=== PATIENT | male | born 1935 | race Hispanic/Latino ===

== ENCOUNTER 2017-03-13 14:18 | Observation (INO) | payer MEDICARE ==
[2017-03-13 14:18] VITALS: BMI 26.6
--- NOTE | 2017-03-13 14:48 | C.PDOC ---
History Of Present Illness NEW ONSET DIZZY SINCE THIS MORNING. "SPINNING" WORSE W POSITOIN CHANGE. +NV. NO GRIMES, FOCAL WEAK. NO CP. HO PPM, R LEG STENT EXAM MILD DIST NONTOXIC HEENT NO NYSTAGMUS NEURO NEG RRR REMAINDE RNEG Time Seen by Provider: 03/13/17 14:39 Chief Complaint (Nursing): Dizziness/Lightheaded History Per: Patient History/Exam Limitations: no limitations Onset/Duration Of Symptoms: Hrs Current Symptoms Are (Timing): Still Present Seizure Or Post-ictal Symptoms: None Fall Associated With With Symptoms: No Recent travel outside of the [place]: No Past Medical History Reviewed: Historical Data, Nursing Documentation, Vital Signs Vital Signs: Last Vital Signs Temp 97.5 F L 03/13/17 14:20 Pulse 63 03/13/17 14:20 Resp 20 03/13/17 14:20 BP 145/61 03/13/17 14:20 Pulse Ox 95 03/13/17 18:28 - Medical History PMH: Atrial Fibrillation, Cardia Arrhythmia, Fractures (right thumb 1950 no sx) , HTN Surgical History: Back Surgery, Cholecystectomy, Pacemaker (11/26/2013) - [employer] Procedures CONTRAST ARTERIOGRAM-LEG (08/27/13) CORONAR ARTERIOGR-2 CATH (08/27/13) ING HERNIA REP-GRAFT NOS (01/08/07) LEFT HEART CARDIAC CATH (08/27/13) LT HEART ANGIOCARDIOGRAM (08/27/13) UMBIL HERNIA REPAIR-GRFT (01/08/07) Family History: States: Unknown Family Hx - Social History Hx Alcohol Use: No Hx Substance Use: No - Immunization History Hx Tetanus Toxoid Vaccination: No Hx Influenza Vaccination: No Hx Pneumococcal Vaccination: No Review Of Systems Except As Marked, All Systems Reviewed And Found Negative. Constitutional: Negative for: Fever, Chills Cardiovascular: Negative for: Chest Pain Respiratory: Negative for: Cough, Shortness of Breath, Wheezing Gastrointestinal: Negative for: Nausea, Vomiting, Abdominal Pain Skin: Negative for: Rash Neurological: Positive for: Dizziness. Negative for: Weakness, Numbness, Headache Physical Exam - Physical Exam Appears: Non-toxic, Other (MILD DISTRESS, NONTOXIC) Skin: Normal Color, Warm, Dry Head: Atraumatic, Normacephalic Eye(s): bilateral: PERRL, EOMI, Other (NO NYSTAGMUS) Ear(s): Bilateral: Normal Nose: Normal Oral Mucosa: Moist Neck: Normal ROM, No Midline Cervical Tenderness, No Paracervical Tenderness, Supple Chest: Symmetrical Cardiovascular: Rhythm Regular Respiratory: Normal Breath Sounds, No Rales, No Rhonchi, No Wheezing Gastrointestinal/Abdominal: Soft, No Tenderness, No Guarding, No Rebound Back: Normal Inspection Extremity: Normal ROM, Capillary Refill (< 2 SEC.) Neurological/Psych: Oriented x3, Normal Speech, Normal Cognition ED Course And Treatment - Laboratory Results Result Diagrams: 03/13/17 15:00 03/13/17 15:00 ECG: Interpreted By Me ECG Rhythm: AV Paced Rate From EC (BPM) O2 Sat by Pulse Oximetry: 95 (RA) Pulse Ox Interpretation: Normal - CT Scan/US CT HEAD Other Rad Studies (CT/US): Read By Radiologist, Radiology Report Reviewed CT/US Interpretation: IMPRESSION: No acute intracranial abnormalities. No significant findings to account for the clinical presentation. Progress - Re-Evaluation Re-evaluation Note: 03/13/17 17:39 PERSIST VERTIGO SP MECLIZINE. INDUCIBLE W POSITION CHANGE. PENDING CT REPORT 03/13/17 17:59 PENDING CALLBACK PMD 03/13/17 18:02 D/W DR CALIX WILL ADMIT - Data Reviewed Data Reviewed: Lab, Diagnostic imaging, EKG, Old records Disposition Counseled Patient/Family Regarding: Studies Performed, Diagnosis - Disposition Disposition: HOSPITALIZED Disposition Time: 18:03 Condition: STABLE - POA Present On Arrival: Poor Glycemic Control - Clinical Impression Clinical Impression: Vertigo, Difficulty walking - Scribe Statement The provider has reviewed the documentation as recorded by the Vishal Fields All medical record entries made by the Vishal were at my direction and personally dictated by me. I have reviewed the chart and agree that the record accurately reflects my personal performance of the history, physical exam, medical decision making, and the department course for this patient. I have also personally directed, reviewed, and agree with the discharge instructions and disposition. Decision To Admit - Pt Status Changed To: Hospital Disposition Of: Observation - . Bed Request Type: Regular Admitting Physician: Jennifer Calix Patient Diagnosis: Vertigo, Difficulty walking
[2017-03-13 15:07] LABS: BASO # 0.1 K/uL (0.0-0.2); BASO % 0.5 % (0.0-2.0); EOS # 0.1 K/uL (0.0-0.7); EOS % 1.1 % (0.0-4.0); HEMATOCRIT 35.8 % (35.0-51.0); LYMPH # 1.7 K/uL (1.0-4.3); LYMPH % 15.9 % (20.0-40.0); MEAN CELL VOLUME 92.5 fL (80.0-94.0); MEAN CORPUSCULAR HEMOGLOBIN 31.6 pg (27.0-31.0); MEAN CORPUSCULAR HGB CONC 34.2 g/dL (33.0-37.0); MEAN PLATELET VOLUME 7.8 fL (7.2-11.7); MONO # 0.5 K/uL (0.0-0.8); MONO % 4.8 % (0.0-10.0); NRBC % 0.1 % (0.0-2.0); RED CELL DISTRIBUTION WIDTH 13.5 % (11.5-14.5); WHITE BLOOD COUNT 10.8 K/uL (4.8-10.8)
[2017-03-13 15:34] LABS: CHLORIDE 103 mmol/L (98-107); SODIUM 138 mmol/L (132-148)
[2017-03-13 15:35] LABS: POTASSIUM 4.2 mmol/L (3.6-5.2)
[2017-03-13 15:37] LABS: ALB/GLOB RATIO 1.3 (1.0-2.1); ALKALINE PHOSPHATASE 45 U/L (38-126); AST/SGOT 19 U/L (17-59); BILIRUBIN,TOTAL 0.8 mg/dL (0.2-1.3); BLOOD UREA NITROGEN 19 mg/dL (9-20); CARBON DIOXIDE 23 mmol/L (22-30); GFR AFRICAN-AMERICAN > 60; GLUCOSE,RANDOM 243 mg/dL (75-110); TOTAL PROTEIN 6.6 g/dL (6.3-8.3)
[2017-03-13 15:38] LABS: ALT/SGPT 19 U/L (21-72); CALCIUM 8.9 mg/dl (8.6-10.4)
[2017-03-13] MEDS ORDERED: Iohexol 350mg/ml 100 ML ONE (16:05)
[2017-03-13] MEDS ORDERED: Iodixanol 320 MG/ML 100 ML BOTTLE IV ONE (16:41)
--- NOTE | 2017-03-13 17:56 | CT ---
PROCEDURE: CT HEAD WITHOUT CONTRAST. HISTORY: dizzy COMPARISON: None available. TECHNIQUE: Axial computed tomography images were obtained through the head/brain without intravenous contrast. Radiation dose: Total exam DLP = 780.12 mGy-cm. This CT exam was performed using one or more of the following dose reduction techniques: Automated exposure control, adjustment of the mA and/or kV according to patient size, and/or use of iterative reconstruction technique. FINDINGS: HEMORRHAGE: No intracranial hemorrhage. BRAIN: No mass effect or edema. Age related senescent change VENTRICLES: Unremarkable. No hydrocephalus. CALVARIUM: Unremarkable. PARANASAL SINUSES: Unremarkable as visualized. No significant inflammatory changes. MASTOID AIR CELLS: Unremarkable as visualized. No inflammatory changes. OTHER FINDINGS: None. IMPRESSION: No acute intracranial abnormalities. No significant findings to account for the clinical presentation.
--- NOTE | 2017-03-13 21:13 | CP.PCM.HP ---
History of Present Illness - History of Present Illness History of Present Illness: The pt is an 81 year old man with, DM, HTN,HLD ,CAD, episodic atrial fib, s/p PPM. in NSR, on xarelto. he came to the hospital with a complaint of feeling dizzy , started this am then agia noted at 12 noon and ER, unabe to balance him self, with spinning sensation and vomiting one episode . denies fever]diarrhea , chest pain, SOB. no hx of similar symtoms. Past Patient History - Past Medical History & Family History Past Medical History?: Yes - Past Social History Smoking Status: Never Smoked - CARDIAC Hx Atrial Fibrillation: Yes Hx Cardia Arrhythmia: Yes Hx Hypertension: Yes Hx Pacemaker: Yes (11/26/2013) - PULMONARY Hx Respiratory Disorders: No - NEUROLOGICAL Hx Neurological Disorder: No - HEENT Hx HEENT Problems: Yes Hx Cataracts: Yes (b/l sx) - RENAL Hx Chronic Kidney Disease: No - ENDOCRINE/METABOLIC Hx Endocrine Disorders: Yes Hx Diabetes Mellitus Type 2: Yes - HEMATOLOGICAL/ONCOLOGICAL Hx Blood Disorders: Yes Hx Cancer: Yes (possible "skin ca") - INTEGUMENTARY Hx Dermatological Problems: Yes Hx Squamous Cell: Yes Other/Comment: "squamous cell left chest lesion 2 surgries has chest wall scar, some eccymosis, small lump to right of right eye where squamous cell ca was removed" as per previous triage notes. - MUSCULOSKELETAL/RHEUMATOLOGICAL Hx Falls: No - GASTROINTESTINAL Hx Gastrointestinal Disorders: No - GENITOURINARY/GYNECOLOGICAL Hx Genitourinary Disorders: No - PSYCHIATRIC Hx Substance Use: No - SURGICAL HISTORY Hx Cholecystectomy: Yes - ANESTHESIA Hx Anesthesia: Yes Hx Anesthesia Reactions: Yes (NAUSEA/VOMITING) Meds Allergies/Adverse Reactions: Allergies Allergy/AdvReac Type Severity Reaction Status Date / Time No Known Allergies Allergy Verified 05/03/15 10:41 Results - Vital Signs Recent Vital Signs: Last Vital Signs Temp 98.0 F 03/13/17 18:47 Pulse 65 03/13/17 18:47 Resp 20 03/13/17 18:47 BP 144/61 03/13/17 18:47 Pulse Ox 99 03/13/17 18:47 - Labs Result Diagrams: 03/14/17 07:19 03/14/17 07:19
[2017-03-13] MEDS: (Novolog) Insulin Aspart, Recombinant 100 u/ml 10 ml vial SC SCH (21:55)
[2017-03-14 07:33] LABS: BASO % 0.4 % (0.0-2.0); EOS # 0.1 K/uL (0.0-0.7); EOS % 1.9 % (0.0-4.0); HEMATOCRIT 35.2 % (35.0-51.0); LYMPH # 1.9 K/uL (1.0-4.3); LYMPH % 25.5 % (20.0-40.0); MEAN CELL VOLUME 91.5 fL (80.0-94.0); MEAN CORPUSCULAR HEMOGLOBIN 31.8 pg (27.0-31.0); MEAN CORPUSCULAR HGB CONC 34.7 g/dL (33.0-37.0); MEAN PLATELET VOLUME 8.2 fL (7.2-11.7); MONO # 0.8 K/uL (0.0-0.8); MONO % 9.9 % (0.0-10.0); RED CELL DISTRIBUTION WIDTH 13.2 % (11.5-14.5); WHITE BLOOD COUNT 7.6 K/uL (4.8-10.8)
[2017-03-14 07:44] LABS: CHLORIDE 102 mmol/L (98-107); POTASSIUM 3.9 mmol/L (3.6-5.2); SODIUM 139 mmol/L (132-148)
[2017-03-14 07:46] LABS: GFR AFRICAN-AMERICAN > 60
[2017-03-14 07:47] LABS: ALB/GLOB RATIO 1.5 (1.0-2.1); ALKALINE PHOSPHATASE 40 U/L (38-126); ALT/SGPT 18 U/L (21-72); AST/SGOT 16 U/L (17-59); BILIRUBIN,TOTAL 0.6 mg/dL (0.2-1.3); BLOOD UREA NITROGEN 21 mg/dL (9-20); CALCIUM 8.6 mg/dl (8.6-10.4); CARBON DIOXIDE 26 mmol/L (22-30); GLUCOSE,RANDOM 135 mg/dL (75-110); TOTAL PROTEIN 5.9 g/dL (6.3-8.3)
[2017-03-14] MEDS: (Novolog) Insulin Aspart, Recombinant 100 u/ml 10 ml vial SC SCH ×4 (08:21→22:57)
[2017-03-14] MEDS: Metoprolol Succinate 25 mg XL Tab PO SCH (11:00)
--- NOTE | 2017-03-14 13:17 | CARD ---
APPROVED REPORT EXAM: Two-dimensional and M-mode echocardiogram with Doppler and color Doppler. Other Information Quality : GoodRhythm : Atrial Fibrillation INDICATION Atrial Fibrillation Surgery/Intervention Pacemaker: RISK FACTORS Hypertension Diabetes 2D DIMENSIONS IVSd1.0 (0.7-1.1cm)LVDd5.0 (3.9-5.9cm) LVOT Diameter2.1 (1.8-2.4cm)PWd1.0 (0.7-1.1cm) LVDs3.4 (2.5-4.0cm)FS (%) 32.1 % LVEF (%)60.0 (>50%) M-Mode DIMENSIONS Left Atrium (MM)4.60 (2.5-4.0cm)IVSd1.00 (0.7-1.1cm) Aortic Root3.37 (2.2-3.7cm)LVDd5.39 (4.0-5.6cm) Aortic Cusp Exc.1.58 (1.5-2.0cm)PWd0.73 (0.7-1.1cm) FS (%) 30 %LVDs3.75 (2.0-3.8cm) LVEF (%)57 (>50%) Aortic Valve AoV Peak Fdwoknmo325.4cm/sAoV VTI47.5cmAO Peak GR.24mmHg LVOT Peak Qtwquyjo269.6cm/sLVOT VTI28.76cmAO Mean GR.14mmHg JENNA (VMAX)1.47yx6UEA (VTI)2.34re1QO P 1/2 Kvvv125bk Mitral Valve MV E Xrphpitl441.0cm/sMV A Ngfmrckj15.1cm/sE/A ratio2.1 TDI E/Lateral E'0.0E/Medial E'0.0 Tricuspid Valve TR Peak Svvclbgf446ai/sTR Peak Gr.06lvFhYEBC26lqQv LEFT VENTRICLE The left ventricle is normal size. There is normal left ventricular wall thickness. The left ventricular function is normal. The left ventricular ejection fraction is within the normal range. There is normal LV segmental wall motion. Tissue Doppler imaging reveals mild left ventricular diastolic dysfunction. No left ventricle thrombus noted on this study. There is no ventricular septal defect visualized. There is no left ventricular aneurysm. There is no mass noted in the left ventricle. RIGHT VENTRICLE The right ventricle is normal size. There is normal right ventricular wall thickness. The right ventricular systolic function is normal. ATRIA The left atrium is mildly dilated. The right atrium size is normal. The interatrial septum is intact with no evidence for an atrial septal defect. AORTIC VALVE The aortic valve is calcified and displays decreased opening. There is mild aortic regurgitation. There is mild valvular aortic stenosis. Calculated aortic valve area is 1.9 cm2 with maximum pressure gradient of 24 mmHg and mean pressure gradient of 14 mmHg. There is no aortic valvular vegetation. MITRAL VALVE The mitral valve is calcified but opens well. There is no mitral valve stenosis. There is no mitral valve regurgitation noted. TRICUSPID VALVE The tricuspid valve is normal in structure. There is moderate to severe pulmonary hypertension. PULMONIC VALVE The pulmonary valve is normal in structure. There is moderate pulmonic valvular regurgitation. GREAT VESSELS The aortic root is normal in size. The ascending aorta is normal in size. The pulmonary artery is normal. PERICARDIAL EFFUSION There is no pericardial effusion. <Conclusion> Tissue Doppler imaging reveals mild left ventricular diastolic dysfunction. The left atrium is mildly dilated. There is mild aortic regurgitation. There is mild valvular aortic stenosis. Calculated aortic valve area is 1.9 cm2 with maximum pressure gradient of 24 mmHg and mean pressure gradient of 14 mmHg. There is moderate to severe pulmonary hypertension. There is moderate pulmonic valvular regurgitation. LVEF IS 60%.
--- NOTE | 2017-03-14 13:17 | CARD ---
APPROVED REPORT EKG Measurement Heart [id number] <Conclusion> Atrial-sensed ventricular-paced rhythm Abnormal ECG
--- NOTE | 2017-03-14 13:17 | VASCLAB ---
PROCEDURE: HISTORY: Dizziness COMPARISON: None available. TECHNIQUE: Grayscale and duplex Doppler evaluation of the cervical carotid and vertebral arteries were performed. The common carotid, carotid bifurcations and cervical Internal Carotid Artery (ICA) and proximal External Carotid Artery (ECA) were evaluated. The vertebral arteries were evaluated for gross patency and flow direction. Report prepared by RADHA Ho FINDINGS: RIGHT CAROTID ARTERIES: 1. Common Carotid Artery: No significant focal plaque formation of the right common carotid artery. Maximum Peak Systolic velocity: 115 cm/sec: End-diastolic velocity 14 cm/sec. 2. Carotid Bifurcation: Heterogeneous plaque formation. Maximum Peak Systolic velocity: 80 cm/sec: End-diastolic velocity 9 cm/sec. 3. Internal Carotid Artery: Plaque description: Heterogeneous 3.1. Proximal Segment: Peak systolic velocity 55 cm/sec: End-diastolic velocity 10 cm/sec - % stenosis 0-15% 3.2. Middle Segment: Peak systolic velocity 69 cm/sec: End-diastolic velocity 14 cm/sec - % stenosis 0-15% 3.3. Distal Segment: Peak systolic velocity 59 cm/sec: End-diastolic velocity 12 cm/sec - % stenosis 0-15% 4. External Carotid Artery: No significant focal plaque formation. Peak systolic velocity 85 cm/sec 5. ICA/CCA Ratio: 1.0 LEFT CAROTID ARTERIES: 1. Common Carotid Artery: No significant focal plaque formation of the left common carotid artery. Maximum Peak Systolic velocity: 123 cm/sec: End-diastolic velocity 11 cm/sec. 2. Carotid Bifurcation: Heterogeneous plaque formation. Maximum Peak Systolic velocity: 49 cm/sec: End-diastolic velocity 6 cm/sec. 3. Internal Carotid Artery: Plaque description: Heterogeneous 3.1. Proximal Segment: Peak systolic velocity 75 cm/sec: End-diastolic velocity 15 cm/sec - % stenosis 0-15% 3.2. Middle Segment: Peak systolic velocity 61 cm/sec: End-diastolic velocity 8 cm/sec - % stenosis 0-15% 3.3. Distal Segment: Peak systolic velocity 92 cm/sec: End-diastolic velocity 16 cm/sec - % stenosis 0-15% 4. External Carotid Artery: No significant focal plaque formation. Peak systolic velocity 118 cm/sec 5. ICA/CCA Ratio: 1.3 VERTEBRAL ARTERIES: 1. Right Vertebral Artery: The right vertebral artery flow direction is antegrade. 2. Left Vertebral Artery: The left vertebral artery flow direction is antegrade. OTHER FINDINGS: 1. Right Brachial Blood pressure: 120 mmHg. 2. Left Brachial Blood pressure: 120 mmHg. IMPRESSION: RIGHT: Duplex scan does not suggest hemodynamically significant stenosis of the right extracranial carotid arteries. LEFT: Duplex scan does not suggest hemodynamically significant stenosis of the left extracranial carotid arteries.
--- NOTE | 2017-03-14 13:18 | CARD ---
APPROVED REPORT EKG Measurement Heart [id number] <Conclusion> Atrial-sensed ventricular-paced rhythm Abnormal ECG
--- NOTE | 2017-03-14 13:54 | CP.PCM.PN ---
Subjective - Date & Time of Evaluation Date of Evaluation: 03/14/17 Time of Evaluation: 13:10 - Subjective Subjective: NUCLEAR PHARMACIST NOTES CC- RN INFORMED ME CRITICAL LAB VALUE OF TROPONIN - 0.1430 . HPI- Atrial Fibrillation, Cardia Arrhythmia, , HTN ,Pacemaker , admitted to the floor for dizziness/ vertigo, and generalized weakness Pt seen and examined at bedside, awake, alert, ox3, denies nay chest pain, sob, palpitation, diaphoresis pt had an episode of N/V and dizziness at home yesterday before coming to the hospital. no further episode of N/V today reported Labs- troponin elevated from 0.0120 to 0.1430 EKG- paced rhythm will repeat ekg x1 now , troponin x1 , and ECHO Patient already on xeralto Dr. Miranda cardiology consult Transfer patient to tele monitor . The above plan discussed with Dr. Aldridge and agrees Objective - Vital Signs/Intake and Output Vital Signs (last 24 hours): Temp Pulse Resp BP Pulse Ox 98.2 F 69 20 133/74 95 03/14/17 08:01 03/14/17 08:01 03/14/17 08:01 03/14/17 08:01 03/14/17 08:01 Intake and Output: 03/14/17 03/14/17 06:59 18:59 Intake Total 105 Balance 105 - Medications Medications: Current Medications Amlodipine Besylate (Norvasc) 10 mg PO DAILY [facility] Last Admin: 03/14/17 11:00 Dose: 10 mg Aspirin (Ecotrin) 81 mg PO DAILY [facility] Last Admin: 03/14/17 11:00 Dose: 81 mg Insulin Aspart (Novolog) 0 unit SC ACHS [facility] PRN Reason: Protocol Last Admin: 03/14/17 12:30 Dose: 2 unit Losartan Potassium (Cozaar) 100 mg PO DAILY [facility] Last Admin: 03/14/17 11:00 Dose: 100 mg Meclizine HCl (Antivert) 12.5 mg PO BID [facility] Last Admin: 03/14/17 11:00 Dose: 12.5 mg Metformin HCl (Glucophage) 1,000 mg PO BIDAC [facility] Last Admin: 03/14/17 08:30 Dose: 1,000 mg Metoprolol Succinate (Toprol Xl) 25 mg PO DAILY [facility] Last Admin: 03/14/17 11:00 Dose: 25 mg Rivaroxaban (Xarelto) 15 mg PO BID [facility] Last Admin: 03/14/17 11:00 Dose: 15 mg Rosuvastatin Calcium (Crestor) 20 mg PO HS [facility] Last Admin: 03/13/17 22:44 Dose: 20 mg Sitagliptin Phosphate (Januvia) 100 mg PO ACB [facility] Last Admin: 03/14/17 08:30 Dose: 100 mg Spironolactone (Aldactone) 25 mg PO DAILY [facility] Last Admin: 03/14/17 11:00 Dose: 25 mg - Labs Labs: 03/14/17 07:19 03/14/17 07:19
--- NOTE | 2017-03-14 20:04 | CP.PCM.CON ---
History of Present Illness - History of Present Illness History of Present Illness: The pt is an 81 year old man with, CAD, episodic atrial fib, s/p PPM. in NSR, on xarelto. he came to the hospital with a complaint of vertigo, nausea and vomiting now resolved. Denies chest pressure or dyspnea. Pt had a cardiac cath in 2013, with moderte non-obstructive cad, and an occluded PDA. A nuclear stress revealed normal LV EF, a small region of mild ischemia. No significant valvular heart disease. Pt now has a persistent mild troponin elevation, of .12 and .14. ECG shows NSR, a paced rhythm. Vertigo and nausea have resolved. Echo shows normal LV EF, head ct shows nothing new, and carotid dopplers are not significant. Review of Systems - Review of Systems All systems: reviewed and no additional remarkable complaints except (as above.) Past Patient History - Past Medical History & Family History Past Medical History?: Yes - Past Social History Smoking Status: Never Smoked - CARDIAC Hx Atrial Fibrillation: Yes Hx Cardia Arrhythmia: Yes Hx Hypertension: Yes Hx Pacemaker: Yes (11/26/2013) - PULMONARY Hx Respiratory Disorders: No - NEUROLOGICAL Hx Neurological Disorder: No - HEENT Hx HEENT Problems: Yes Hx Cataracts: Yes (b/l sx) - RENAL Hx Chronic Kidney Disease: No - ENDOCRINE/METABOLIC Hx Endocrine Disorders: Yes Hx Diabetes Mellitus Type 2: Yes - HEMATOLOGICAL/ONCOLOGICAL Hx Blood Disorders: Yes Hx Cancer: Yes (possible "skin ca") - INTEGUMENTARY Hx Dermatological Problems: Yes Hx Squamous Cell: Yes Other/Comment: "squamous cell left chest lesion 2 surgries has chest wall scar, some eccymosis, small lump to right of right eye where squamous cell ca was removed" as per previous triage notes. - MUSCULOSKELETAL/RHEUMATOLOGICAL Hx Falls: No - GASTROINTESTINAL Hx Gastrointestinal Disorders: No - GENITOURINARY/GYNECOLOGICAL Hx Genitourinary Disorders: No - PSYCHIATRIC Hx Substance Use: No - SURGICAL HISTORY Hx Cholecystectomy: Yes - ANESTHESIA Hx Anesthesia: Yes Hx Anesthesia Reactions: Yes (NAUSEA/VOMITING) Meds Allergies/Adverse Reactions: Allergies Allergy/AdvReac Type Severity Reaction Status Date / Time No Known Allergies Allergy Verified 05/03/15 10:41 - Medications Medications: Current Medications Amlodipine Besylate (Norvasc) 10 mg PO DAILY [facility] Last Admin: 03/14/17 11:00 Dose: 10 mg Aspirin (Ecotrin) 81 mg PO DAILY [facility] Last Admin: 03/14/17 11:00 Dose: 81 mg Insulin Aspart (Novolog) 0 unit SC [facility] PRN Reason: Protocol Last Admin: 03/14/17 18:34 Dose: 1 unit Losartan Potassium (Cozaar) 100 mg PO DAILY [facility] Last Admin: 03/14/17 11:00 Dose: 100 mg Meclizine HCl (Antivert) 12.5 mg PO BID [facility] Last Admin: 03/14/17 18:33 Dose: 12.5 mg Metformin HCl (Glucophage) 1,000 mg PO BIDAC [facility] Last Admin: 03/14/17 18:33 Dose: 1,000 mg Metoprolol Succinate (Toprol Xl) 25 mg PO DAILY [facility] Last Admin: 03/14/17 11:00 Dose: 25 mg Rivaroxaban (Xarelto) 15 mg PO BID [facility] Last Admin: 03/14/17 11:00 Dose: 15 mg Rosuvastatin Calcium (Crestor) 20 mg PO HS [facility] Last Admin: 03/13/17 22:44 Dose: 20 mg Sitagliptin Phosphate (Januvia) 100 mg PO ACB [facility] Last Admin: 03/14/17 08:30 Dose: 100 mg Spironolactone (Aldactone) 25 mg PO DAILY [facility] Last Admin: 03/14/17 11:00 Dose: 25 mg Physical Exam - Head Exam Head Exam: ATRAUMATIC, NORMAL INSPECTION - Eye Exam Eye Exam: EOMI Pupil Exam: NORMAL ACCOMODATION - Respiratory Exam Respiratory Exam: Clear to Auscultation Bilateral, NORMAL BREATHING PATTERN - GI/Abdominal Exam GI & Abdominal Exam: Normal Bowel Sounds - Rectal Exam Rectal Exam: NORMAL INSPECTION - Extremities Exam Extremities exam: Positive for: normal inspection - Psychiatric Exam Psychiatric exam: Normal Affect, Normal Mood Results - Vital Signs Recent Vital Signs: Last Vital Signs Temp 98.2 F 03/14/17 08:01 Pulse 68 03/14/17 15:22 Resp 20 03/14/17 08:01 BP 133/74 03/14/17 08:01 Pulse Ox 95 03/14/17 08:01 - Labs Result Diagrams: 03/14/17 07:19 03/14/17 07:19 Labs: Laboratory Results - last 24 hr 03/13/17 03/14/17 03/14/17 21:51 07:19 07:19 WBC 7.6 RBC 3.84 L Hgb 12.2 Hct 35.2 MCV 91.5 MCH 31.8 H MCHC 34.7 RDW 13.2 Plt Count 202 MPV 8.2 Neut % (Auto) 62.3 Lymph % (Auto) 25.5 O'Brien % (Auto) 9.9 Eos % (Auto) 1.9 Baso % (Auto) 0.4 Neut # 4.7 Lymph # 1.9 O'Brien # 0.8 Eos # 0.1 Baso # 0.0 Sodium 139 Potassium 3.9 Chloride 102 Carbon Dioxide 26 Anion Gap 14 BUN 21 H Creatinine 0.8 Est GFR ( Amer) > 60 Est GFR (Non-Af Amer) > 60 POC Glucose (mg/dL) 245 H Random Glucose 135 H Calcium 8.6 Ferritin 74.9 Total Bilirubin 0.6 AST 16 L ALT 18 L Alkaline Phosphatase 40 Total Creatine Kinase 41 L CK-MB (Mass) 1.50 Troponin I Troponin I, Quant 0.1430 H* Total Protein 5.9 L Albumin 3.5 Globulin 2.4 Albumin/Globulin Ratio 1.5 03/14/17 03/14/17 03/14/17 07:28 11:36 16:35 WBC RBC Hgb Hct MCV MCH MCHC RDW Plt Count MPV Neut % (Auto) Lymph % (Auto) O'Brien % (Auto) Eos % (Auto) Baso % (Auto) Neut # Lymph # O'Brien # Eos # Baso # Sodium Potassium Chloride Carbon Dioxide Anion Gap BUN Creatinine Est GFR ( Amer) Est GFR (Non-Af Amer) POC Glucose (mg/dL) 142 H 212 H Random Glucose Calcium Ferritin Total Bilirubin AST ALT Alkaline Phosphatase Total Creatine Kinase CK-MB (Mass) Troponin I 0.1250 H* Troponin I, Quant Total Protein Albumin Globulin Albumin/Globulin Ratio 03/14/17 17:51 WBC RBC Hgb Hct MCV MCH MCHC RDW Plt Count MPV Neut % (Auto) Lymph % (Auto) O'Brien % (Auto) Eos % (Auto) Baso % (Auto) Neut # Lymph # O'Brien # Eos # Baso # Sodium Potassium Chloride Carbon Dioxide Anion Gap BUN Creatinine Est GFR ( Amer) Est GFR (Non-Af Amer) POC Glucose (mg/dL) 158 H Random Glucose Calcium Ferritin Total Bilirubin AST ALT Alkaline Phosphatase Total Creatine Kinase CK-MB (Mass) Troponin I Troponin I, Quant Total Protein Albumin Globulin Albumin/Globulin Ratio - EKG Data EKG Interpreted by: Myself EKG shows normal: Sinus rhythm (as per my hpi) Assessment & Plan - Assessment and Plan (Free Text) Assessment: 1. CAD: pt has had a work up in the past and 2016 nuclear stress does show mild ischemia, likely due to the patients; known occluded PDA. he came to the hospital for vertigo, and troponnins were ordered as a matter of routine. The pt denies chest pressure or dyspnea. In the clinical setting, essentially asymptomatic for cardiovascular complaints, the tnivial TNI elevations are of uncertain significance. The pt is stable and if he ambulates without chest pain , and the TNI is no higher in the AM, would advise repeat oupatient nuclear stress. 2. Pt is in nsr, on xarelto.
--- NOTE | 2017-03-14 23:07 | CP.PCM.PN ---
Subjective - Date & Time of Evaluation Date of Evaluation: 03/14/17 Time of Evaluation: 17:00 - Subjective Subjective: denies chest pain,SOB. feels dizziness better. only felt this am. PT onbaord elevated trops, no new EKG changes .vitals stable Objective - Vital Signs/Intake and Output Vital Signs (last 24 hours): Temp Pulse Resp BP Pulse Ox 98.2 F 68 20 133/74 95 03/14/17 08:01 03/14/17 15:22 03/14/17 08:01 03/14/17 08:01 03/14/17 08:01 - Medications Medications: Current Medications Amlodipine Besylate (Norvasc) 10 mg PO DAILY [facility] Last Admin: 03/14/17 11:00 Dose: 10 mg Aspirin (Ecotrin) 81 mg PO DAILY [facility] Last Admin: 03/14/17 11:00 Dose: 81 mg Insulin Aspart (Novolog) 0 unit SC ACHS [facility] PRN Reason: Protocol Last Admin: 03/14/17 22:57 Dose: Not Given Losartan Potassium (Cozaar) 100 mg PO DAILY [facility] Last Admin: 03/14/17 11:00 Dose: 100 mg Meclizine HCl (Antivert) 12.5 mg PO BID [facility] Last Admin: 03/14/17 18:33 Dose: 12.5 mg Metformin HCl (Glucophage) 1,000 mg PO BIDAC [facility] Last Admin: 03/14/17 18:33 Dose: 1,000 mg Metoprolol Succinate (Toprol Xl) 25 mg PO DAILY [facility] Last Admin: 03/14/17 11:00 Dose: 25 mg Rivaroxaban (Xarelto) 15 mg PO BID [facility] Last Admin: 03/14/17 23:00 Dose: 15 mg Rosuvastatin Calcium (Crestor) 20 mg PO HS [facility] Last Admin: 03/14/17 23:00 Dose: 20 mg Sitagliptin Phosphate (Januvia) 100 mg PO ACB [facility] Last Admin: 03/14/17 08:30 Dose: 100 mg Spironolactone (Aldactone) 25 mg PO DAILY [facility] Last Admin: 03/14/17 11:00 Dose: 25 mg - Labs Labs: 03/14/17 07:19 03/14/17 07:19 Assessment and Plan (1) Type 2 diabetes mellitus with hyperglycemia Status: Chronic (2) Essential (primary) hypertension Status: Chronic (3) Vertigo Status: Acute (4) Afib Status: Acute
[2017-03-15] MEDS: (Novolog) Insulin Aspart, Recombinant 100 u/ml 10 ml vial SC SCH ×3 (08:23→18:16)
[2017-03-15] MEDS: Metoprolol Succinate 25 mg XL Tab PO SCH (10:11)
--- NOTE | 2017-03-15 10:47 | CT ---
PROCEDURE: CT HEAD WITHOUT CONTRAST. HISTORY: vertigo COMPARISON: Comparison made with CT scan brain 03/13/2017 TECHNIQUE: Axial computed tomography images were obtained through the head/brain without intravenous contrast. Radiation dose: Total exam DLP = 740.48 mGy-cm. This CT exam was performed using one or more of the following dose reduction techniques: Automated exposure control, adjustment of the mA and/or kV according to patient size, and/or use of iterative reconstruction technique. FINDINGS: HEMORRHAGE: No intracranial hemorrhage. BRAIN: Mild chronic periventricular white matter ischemic changes. Vascular calcifications both carotid siphons VENTRICLES: Unremarkable. No hydrocephalus. CALVARIUM: Unremarkable. PARANASAL SINUSES: Unremarkable as visualized. No significant inflammatory changes. MASTOID AIR CELLS: Unremarkable as visualized. No inflammatory changes. OTHER FINDINGS: Changes of bilateral cataract surgery. IMPRESSION: No acute intracranial hemorrhage. Mild chronic white matter ischemic changes. Mild- moderate generalized volume loss.
--- NOTE | 2017-03-15 17:04 | CP.PCM.PN ---
Subjective - Date & Time of Evaluation Date of Evaluation: 03/15/17 Time of Evaluation: 17:04 - Subjective Subjective: Alert, awake, no sob or chest pains. Objective - Vital Signs/Intake and Output Vital Signs (last 24 hours): Temp Pulse Resp BP Pulse Ox 97.3 F L 94 H 20 102/65 97 03/15/17 08:44 03/15/17 08:44 03/15/17 08:44 03/15/17 08:44 03/15/17 08:44 Intake and Output: 03/15/17 03/15/17 06:59 18:59 Intake Total 480 Balance 480 - Medications Medications: Current Medications Acetaminophen (Tylenol 325mg Tab) 650 mg PO Q6 PRN PRN Reason: Pain, moderate (4-7) Amlodipine Besylate (Norvasc) 10 mg PO DAILY [facility] Last Admin: 03/15/17 10:10 Dose: 10 mg Aspirin (Ecotrin) 81 mg PO DAILY [facility] Last Admin: 03/15/17 10:10 Dose: 81 mg Insulin Aspart (Novolog) 0 unit SC ACHS [facility] PRN Reason: Protocol Last Admin: 03/15/17 12:23 Dose: 2 unit Losartan Potassium (Cozaar) 100 mg PO DAILY [facility] Last Admin: 03/15/17 10:10 Dose: 100 mg Meclizine HCl (Antivert) 12.5 mg PO BID [facility] Last Admin: 03/15/17 10:10 Dose: 12.5 mg Metformin HCl (Glucophage) 1,000 mg PO BIDAC [facility] Last Admin: 03/15/17 08:22 Dose: 1,000 mg Metoprolol Succinate (Toprol Xl) 25 mg PO DAILY [facility] Last Admin: 03/15/17 10:11 Dose: 25 mg Rivaroxaban (Xarelto) 15 mg PO BID [facility] Last Admin: 03/15/17 10:10 Dose: 15 mg Rosuvastatin Calcium (Crestor) 20 mg PO HS [facility] Last Admin: 03/14/17 23:00 Dose: 20 mg Sitagliptin Phosphate (Januvia) 100 mg PO ACB [facility] Last Admin: 03/15/17 08:22 Dose: 100 mg Spironolactone (Aldactone) 25 mg PO DAILY [facility] Last Admin: 03/15/17 10:10 Dose: 25 mg - Labs Labs: 03/14/17 07:19 03/14/17 07:19 Assessment and Plan - Assessment and Plan (Free Text) Assessment: Patient is seen and examined. Alert and oriented x3, denies sob or chest pains. Cleared for discharge as per the cardiologyst. D/W DR Calix, discharged home with cane, and meclizine PRN. Advised to follow up in her office in 1 week.
[2017-03-15 18:23] VITALS: BP 98/57; RESP 18; TEMP 98.3; O2SAT 93
[2017-03-15 20:16] VITALS: PULSE 54
--- NOTE | 2017-03-16 20:39 | CARD ---
APPROVED REPORT EKG Measurement Heart [id number] CT 182P19 [id number] <Conclusion> Atrial-sensed ventricular-paced rhythm Abnormal ECG
--- NOTE | 2017-03-16 20:40 | CARD ---
APPROVED REPORT EKG Measurement Heart [id number] [place] 178P19 [id number] <Conclusion> Atrial-sensed ventricular-paced rhythm Abnormal ECG
== END 2017-03-15 19:30 | disposition home or self-care (01) ==
LOC: C.ER 14:18 → C.9E 18:04 → C.3T 18:23 → C.6T 03-14 15:18
PROVIDERS: ADMIT Internal Medicine; ATTEND Internal Medicine
DX: R42 Dizziness and giddiness (principal); E11.65 Type 2 diabetes mellitus with hyperglycemia; I10 Essential (primary) hypertension; I25.10 Atherosclerotic heart disease of native coronary artery without angina pectoris; I48.91 Unspecified atrial fibrillation; Z95.0 Presence of cardiac pacemaker
CPT/HCPCS: 36415; 70450; 80053; 82728; 82948; 84484; 85025; 93005; 93306; 93880; 96374; 97116; 97161; 99285; G0378; G8978; G8979; J2405; Q9967

== ENCOUNTER 2018-11-14 12:58 | Outpatient (CLI) | payer MEDICARE | END 2018-11-14 12:59 | disposition home or self-care (01) | LOC: C.RADIC 12:58 | DX: R05 Cough (principal) ==